=== PATIENT | male | born 1990 | race Caucasian/White ===

== ENCOUNTER 2020-06-14 10:57 | Emergency (ER) | payer OTHER ==
[~2020-06-14] VITALS: Ht 175.3 cm; Wt 99.5 kg
[2020-06-14 11:08] VITALS: BP 125/86; TEMP 98.1
[2020-06-14] MEDS ORDERED: ZOFRAN ODT4 MG PO (12:41)
[2020-06-14 12:53] VITALS: PULSE 59
== END 2020-06-14 12:53 | disposition home or self-care (01) ==
LOC: COL.ER 10:57
DX: R53.81 Other malaise (principal); R51 Headache; R53.83 Other fatigue; Z20.828 Contact with and (suspected) exposure to other viral communicable diseases; Z87.891 Personal history of nicotine dependence
CPT/HCPCS: J1885